=== PATIENT | male | born 1940 | race Caucasian/White ===

== ENCOUNTER 2017-07-01 10:13 | Inpatient (IN) | payer OTHER ==
[~2017-07-01] VITALS: Ht 175.3 cm; Wt 72.1 kg
--- NOTE | 2017-07-01 10:23 | NUR ---
PATIENT AMBULATED TO BED 10
--- NOTE | 2017-07-01 10:25 | NUR ---
77/M BIB WITH c/o 10/10 "cramping" mid lower abd pain AT 7.30 AM TODAY. pt denies any n/v/d. 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 AAOX4 WITH EVEN AND STEADY GAIT; LUNGS CLEAR BL; HR EVEN AND REGULAR; PT DENIES ANY FEVER, CP, SOB, OR COUGH AT THIS TIME; PATIENT STATES PAIN OF 10/10 AT THIS TIME. PATIENT POSITIONED FOR COMFORT; HOB ELEVATED; BEDRAILS UP X2; BED DOWN. ER MD MADE AWARE OF PT STATUS.
[2017-07-01 10:29] VITALS: BP 174/82
--- NOTE | 2017-07-01 10:43 | NUR ---
Patient being evaluated by DR HEARD at bedside.
[2017-07-01] MEDS ORDERED: NACL 0.9% 1,000 ML IV SCH ×2 (10:49→11:55)
[2017-07-01] MEDS ORDERED: ONDANSETRON 4 MG/2 ML VIAL IVP ONE (10:50)
[2017-07-01] MEDS ORDERED: MORPHINE SULFATE 4 MG/ML SYR IVP ONE ×2 (10:50→11:50)
--- NOTE | 2017-07-01 10:57 | NUR ---
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
--- NOTE | 2017-07-01 11:15 | NUR ---
lab at bedside.
[2017-07-01 11:29] LABS: BASOPHILS % (AUTO) 0.2 % (0.0-2.0); EOSINOPHILS % (AUTO) 0.1 % (0.0-4.0); HEMATOCRIT 42.9 % (36-52); HEMOGLOBIN 14.7 g/dL (12.0-18.0); LYMPHOCYTES # (AUTO) 0.2 K/uL (2.0-11.5); LYMPHOCYTES % (AUTO) 3.3 % (20.5-51.1); MEAN CORPUSCULAR HEMOGLOBIN 31 pg (27-31); MEAN CORPUSCULAR HGB CONC 34 g/dL (33-37); MEAN CORPUSCULAR VOLUME 89.6 fL (80-94); MONOCYTES # (AUTO) 0.2 K/uL (0.8-1.0); MONOCYTES % (AUTO) 2.6 % (1.7-9.3); NEUTROPHILS # (AUTO) 7.1 K/uL (1.8-7.7); NEUTROPHILS % (AUTO) 93.8 % (42.2-75.2); PLATELET COUNT (AUTO) 138 K/uL (140-450); RED BLOOD CELL COUNT(AUTO) 4.78 MIL/uL (4.20-6.10); RED CELL DISTRIBUTION WIDTH 13.6 % (11.6-13.7); WHITE BLOOD COUNT (AUTO) 7.5 K/uL (4.8-10.8)
[2017-07-01 11:39] LABS: CARBON DIOXIDE 28.3 mmol/L (21-32); CHLORIDE 105 mmol/L (98-107); CREATININE 1.2 mg/dL (0.7-1.3); GLUCOSE 141 mg/dL (74-106); POTASSIUM 4.3 mmol/L (3.5-5.1); SODIUM SERUM 139 mmol/L (136-145); UREA NITROGEN, BLOOD 19 mg/dL (7-18)
[2017-07-01 11:44] LABS: ALBUMIN 4.1 g/dL (3.4-5.0); ASPARTATE AMINOTRANSFERASE 17 U/L (15-37); TOTAL BILIRUBIN 0.8 mg/dL (0.0-1.0)
[2017-07-01] MEDS ORDERED: DOCUSATE SODIUM 100 MG GELCAP PO PRN (11:55)
[2017-07-01] MEDS ORDERED: MORPHINE SULFATE 4 MG/ML SYR IVP PRN (11:55)
[2017-07-01] MEDS ORDERED: ONDANSETRON 4 MG/2 ML VIAL IM/IVP PRN (11:55)
[2017-07-01] MEDS ORDERED: ACETAMINOPHEN 325 MG TAB PO PRN (11:55)
[2017-07-01] MEDS ORDERED: HYDROcodone/APAP 7.5/325 MG 1 TAB PO PRN (11:55)
--- NOTE | 2017-07-01 12:10 | NUR ---
X RAY AT BEDSIDE
[2017-07-01 12:30] VITALS: BP 172/82
--- NOTE | 2017-07-01 12:30 | NUR ---
PATIENT WAS TRANSFERRED FROM ER. REPORT WAS GIVEN AT BEDSIDE. MEDICAL CODING SPECIALIST WAS PLACED. VS WAS TAKEN. MRSA WAS SWABBED. PRIMARY RN BA WAS INFORMED.
--- NOTE | 2017-07-01 12:31 | NUR ---
RECEIVED REPORT FROM VALENTE. PT IS AWAKE AND ORIENTED X4. INTRODUCED SELF AND UPDATED BOARD. AT BEDSIDE. PT ABLE TO STATE PAST MEDICAL HX. PT DENIES PAIN. R BKA. WITH R LEG PROSTHESES. VS: WNL. NO SIGNS OF DISTRESS. DR. MILLER CAME IN AND DID RECTAL EXAM. NO SIGNS OF DISTRESS. WILL CONTINUE TO MONITOR.
--- NOTE | 2017-07-01 12:35 | NUR ---
Patient will be admitted to care of DR HARTLEY. Admited to TELE. Will go to [id number]. Belongings list completed. Report to ABUNDIO MIRANDA.
[2017-07-01 13:40] LABS: APPEARANCE,URINE CLEAR (CLEAR); BILIRUBIN,URINE NEGATIVE (NEGATIVE); BLOOD, URINE 3+ (NEGATIVE); COLOR,URINE YELLOW (YELLOW); LEUKOCYTE ESTERASE ,URINE NEGATIVE (NEGATIVE); NITRITE, URINE NEGATIVE (NEGATIVE); UGLUCOSE NEGATIVE (NEGATIVE)
[2017-07-01 13:50] LABS: RBC,URINE 11-20 (MOD) /HPF (0-5); WBC,URINE 0-5 (RARE) /HPF (0-5)
--- NOTE | 2017-07-01 14:20 | NUR ---
PT SLEEPING. NO SIGNS OF DISTRESS. IVF NS INFUSING @140ML/HR. TOLERATING WELL. WILL CONTINUE TO MONITOR.
[2017-07-01 14:26] LABS: CHOL/HDL RATIO 3.9 (1-4.5); FREE T4 (FREE THYROXINE) 0.84 ng/dL (0.76-1.46); MAGNESIUM 1.9 mg/dL (1.8-2.4); PHOSPHORUS 2.9 mg/dL (2.5-4.9); THYROID STIMULATING HORMONE 1.25 uIU/mL (0.34-3.74)
[2017-07-01 16:00] VITALS: BP 147/81
--- NOTE | 2017-07-01 16:30 | NUR ---
CHECKED ON PT IN ROOM. RESTING IN BED. NO SIGNS OF DISTRESS. PT'S AT BEDSIDE. PT DENIES PAIN. CALL LIGHT WITHIN REACH. WILL CONTINUE TO MONITOR.
[2017-07-01] MEDS ORDERED: PHENAZOPYRIDINE 100 MG TAB PO SCH (18:00)
--- NOTE | 2017-07-01 19:25 | NUR ---
ENDORSED PT TO PM NURSE FOR CONTINUITY OF CARE. PT IN STABLE CONDITION.
--- NOTE | 2017-07-01 19:30 | NUR ---
RECEIVED PT IN STABLE CONDITION FROM AM NURSE. AWAKE,ALERT AND ORIENTED X4. ON TELE MONITOR. WITH IVF INFUSING WELL ON THE LT FA#20,CLEAR AND PATENT. FAMILY AT BEDSIDE. PT SAID HE ALREADY PASSED RENAL STONE. CHECKED THE URINE JUST RECENTLY VOIDED, FOUND NOTHING. BUT HE SAID HE SEEMED PASSED EARLIER . DENIES ANY PAIN. WILL STILL CHECK NEXT VOID. THEN WILL HAVE MD KNOW. BED ON LOW POSITION. CALL LIGHT PLACED WITHIN EASY. INSTRUCTED TO CALL FOR ANY ASSISTANCE. WILL CONTINUE TO MONITOR.
--- NOTE | 2017-07-01 20:15 | NUR ---
PT ALREADY VERY EAGER TO GO HOME . SO HE SIGNED THE AMA FORM. 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
--- NOTE | 2017-07-01 20:20 | NUR ---
PT STILL VERY EAGER TO GO HOME. DR ZAMORANO MADE AWARE. SHE SAID IF PT CAN'T WAIT FOR HER TO SEE THEN GO AMA. WENT TO PT AND TOLD HIM ABOUT DR TO SEE HIM IN FEW MORE MINUTES .
--- NOTE | 2017-07-01 20:25 | NUR ---
ID BAND, IV ACCESS AND TELE MONITOR REMOVED. DC HOME AMA ACCOMPANIED BY ,AMBULATORY WITH ALL PERSONAL BELONGINGS .
[2017-07-01] MEDS ORDERED: metroNIDAZOLE 250 MG/NS PREMIX 50 ML IV SCH (21:00)
[2017-07-02 06:15] LABS: T4 (THYROXINE) 6.8 ug/dL (4.5-12.0)
[2017-07-02] MEDS ORDERED: TAMSULOSIN 0.4 MG CAP PO SCH (08:30)
[2017-07-02] MEDS ORDERED: LACTOBACILLUS RHAMNOSUS GG 1 EACH CAP PO SCH (09:00)
== END 2017-07-01 20:25 | disposition left against medical advice (07) | DRG 694 ==
LOC: MED 10:13 → MMU 11:55 → MTU 12:11 → MMU 12:15
PROVIDERS: ADMIT Family Medicine Sports Medicine; ATTEND Family Medicine Sports Medicine
DX: N13.2 Hydronephrosis with renal and ureteral calculous obstruction (principal); D69.6 Thrombocytopenia, unspecified; K52.9 Noninfective gastroenteritis and colitis, unspecified; I10 Essential (primary) hypertension; K57.30 Diverticulosis of large intestine without perforation or abscess without bleeding; N40.1 Benign prostatic hyperplasia with lower urinary tract symptoms; R39.11 Hesitancy of micturition; Z53.21 Procedure and treatment not carried out due to patient leaving prior to being seen by health care provider; Z88.6 Allergy status to analgesic agent; Z87.442 Personal history of urinary calculi; Z89.511 Acquired absence of right leg below knee; Z72.89 Other problems related to lifestyle
CPT/HCPCS: 36415; 71045; 80053; 81001; 82150; 83036; 83605; 83690; 83735; 83880; 84100; 84436; 84439; 84443; 84479; 85025; 85610; 85730; 87040; 87081; 87086; 93005; 96361; 96374; 96375; 96376; 99285; J2270; J2405; J3490; J7030